=== PATIENT | male | born 1975 | race Caucasian/White ===

== ENCOUNTER 2017-11-03 12:25 | Emergency (ER) | payer OTHER ==
[2017-11-03] MEDS ORDERED: ONDANSETRON (ODT) 4 MG TAB ODT (12:43)
[2017-11-03] MEDS: SOD CHLORIDE 0.9% 1,000 ML IV (12:44)
[2017-11-03] MEDS: LORAZEPAM 2 MG INJ IM (12:44)
[2017-11-03] MEDS: HALOPERIDOL 5 MG INJ IM (12:44)
[2017-11-03 12:59] LABS: ADD MAN DIFF? NO
[2017-11-03 13:03] LABS: WHITE BLOOD COUNT 7.5 10^3/ul (4.8-10.8)
[2017-11-03 13:03] LABS: BASOPHILS % 0.5 % (0.0-2.0); EOSINOPHILS # 0.2 10^3/ul (0.0-0.5); EOSINOPHILS % 3.2 % (0.0-7.0); HEMATOCRIT 46.6 % (42.0-52.0); HEMOGLOBIN 15.6 g/dl (14.0-18.0); LYMPHOCYTES # 2.1 10^3/ul (0.8-2.9); LYMPHOCYTES % 27.4 % (15.0-51.0); MEAN CORPUSCULAR HEMOGLOBIN 31.3 pg (29.0-33.0); MEAN CORPUSCULAR HGB CONC 33.5 g/dl (32.0-37.0); MEAN CORPUSCULAR VOLUME 93.6 fl (82.0-101.0); MEAN PLATELET VOLUME 8.6 fl (7.4-10.4); MONOCYTE # 0.4 10^3/ul (0.3-0.9); MONOCYTES % 5.9 % (0.0-11.0); NEUTROPHIL # 4.7 10^3/ul (1.6-7.5); NEUTROPHILS % 62.6 % (39.0-77.0); PLATELET COUNT 311 10^3/UL (140-415); RED BLOOD COUNT 4.98 10^6/ul (4.70-6.10)
[2017-11-03] MEDS ORDERED: DIPHENHYDRAMINE 50 MG INJ (13:06)
[2017-11-03 13:22] LABS: ALANINE AMINOTRANSFERASE 39 IU/L (13-69); ALBUMIN 4.2 g/dl (3.3-4.9); ALKALINE PHOSPHATASE 67 IU/L (42-121); ANION GAP 18 (8-16); ASPARTATE AMINO TRANSFERASE 28 IU/L (15-46); BILIRUBIN,INDIRECT 0.2 mg/dl (0-1.1); BILIRUBIN,TOTAL 0.2 mg/dl (0.2-1.3); BLOOD UREA NITROGEN 19 mg/dl (7-20); CALCIUM 9.3 mg/dl (8.4-10.2); CARBON DIOXIDE 24 mmol/L (21-31); CHLORIDE 102 mmol/L (97-110); CREATININE 0.84 mg/dl (0.61-1.24); GLUCOSE 121 mg/dl (70-220); POTASSIUM 3.5 mmol/L (3.5-5.1); SODIUM 140 mmol/L (135-144); TOTAL PROTEIN 7.2 g/dl (6.1-8.1)
[2017-11-03 13:23] LABS: BARBITURATES Negative (NEGATIVE); BENZODIAZEPINES Negative (NEGATIVE); CANNABINOIDS Positive (NEGATIVE); COCAINE Negative (NEGATIVE); OPIATES Negative (NEGATIVE)
[2017-11-03 13:34] LABS: AMPHETAMINE/METHAMPHETAMINE POSITIVE (NEGATIVE)
[2017-11-03] MEDS: DIPHENHYDRAMINE 50 MG INJ IM (13:34)
[2017-11-03 14:13] LABS: CREATINE KINASE 397 IU/L (23-200)
[2017-11-03] MEDS: LACTATED RINGER'S 1,000 ML IV (17:23)
== END 2017-11-04 03:30 | disposition home or self-care (01) ==
LOC: E/R 12:25
DX: F15.90 Other stimulant use, unspecified, uncomplicated (principal); F29 Unspecified psychosis not due to a substance or known physiological condition; R51 Headache; R00.0 Tachycardia, unspecified
CPT/HCPCS: 36415; 70450; 71045; 80053; 80306; 80307; 82550; 85025; 93005; 96372; 99285-25